=== PATIENT | male | born 1965 | race Caucasian/White ===

== ENCOUNTER 2024-06-30 08:08 | Outpatient (CLI) | payer BC, SELFPAY ==
--- NOTE | ~2024-06-30 | US_ITS ---
EXAMINATION: US thyroid DATE: 06/30/2024 08:21 INDICATION: Thyroid nodule. TECHNIQUE: Multiple ultrasound images of the thyroid were obtained. COMPARISON: None. FINDINGS: The right thyroid lobe measures 5.0 x 2.1 x 1.8 cm. The left thyroid lobe measures 4.0 x 1.2 x 1.5 c m. There is normal echotexture and echogenicity throughout the thyroid gland. No discrete nodules id entified. Normal vascular flow is present. IMPRESSION: 1. Normal thyroid. Reviewed, dictated and finalized at location [] SSMENT NURSE IMPRESSION: 1. Normal thyroid.
== END 2024-06-30 08:09 | disposition home or self-care (01) ==
LOC: MICIMG 08:10
PROVIDERS: PCP Internal Medicine; Visit Provider Internal Medicine
DX: E04.1 Nontoxic single thyroid nodule (principal)
CPT/HCPCS: 76536